=== PATIENT | female | born 1950 | race Caucasian/White ===

== ENCOUNTER 2017-02-21 07:51 | Day surgery (SDC) | payer MEDICARE ==
[~2017-02-21] VITALS: Ht 160 cm; Wt 124.5 kg
[2017-02-21] MEDS ORDERED: FUROSEMIDE40 MG PO (08:28)
[2017-02-21] MEDS ORDERED: ZOCOR40 MG PO (08:28)
[2017-02-21] MEDS ORDERED: TRAZODONE HCL50 MG PO (08:28)
[2017-02-21] MEDS ORDERED: COUMADIN5 MG PO (08:29)
[2017-02-21] MEDS ORDERED: K-DUR20 MEQ PO (08:29)
[2017-02-21] MEDS ORDERED: LEVOTHYROXINE150 MCG PO (08:29)
[2017-02-21] MEDS ORDERED: DETROL LA4 MG PO (08:29)
[2017-02-21] MEDS ORDERED: LOVENOX150 MG/ML SC (08:30)
[2017-02-21] MEDS ORDERED: PROZAC20 MG PO (08:32)
[2017-02-21] MEDS ORDERED: GLUCOPHAGE500 MG PO (08:33)
[2017-02-21] MEDS ORDERED: GLUCOTROL 5 MG T5 MG PO (08:33)
[2017-02-21] MEDS ORDERED: KENALOG 0.1 % O15 GM TOPICAL (08:33)
[2017-02-21] MEDS ORDERED: MELOXICAM TAB 15M (08:34)
[2017-02-21] MEDS ORDERED: HYDROXYZINE HCL50 MG PO (08:35)
[2017-02-21 08:42] VITALS: BP 150/63; Ht 160 cm; Wt 124.5 kg
[2017-02-21 09:31] LABS: ANION GAP 9.3 mmol/L (8-16); CALCIUM 8.6 mg/dL (8.5-10.1); CARBON DIOXIDE 33.1 mmol/L (21.0-32.0)
[2017-02-21 09:32] LABS: HEMATOCRIT 39.1 % (36.0-48.0); HEMOGLOBIN 13.1 g/dL (12-16); MCH 29.4 pg (26.0-34.0); MCHC 33.5 g/dL (31.0-37.0); MCV 87.7 fL (80.0-100.0); MEAN PLATELET VOLUME 10.1 fL (7.4-10.4); PLATELET COUNT 81 10x3/uL (130-400); RBC 4.46 10x6/uL (4.00-5.40); RDW 17.3 % (11.5-14.5); WBC 3.8 10x3/uL (4.8-10.8)
[2017-02-21 09:33] LABS: POTASSIUM - SERUM 2.4 mmol/L (3.5-5.1)
[2017-02-21 09:58] LABS: PLATELET ESTIMATE DECREASED
--- NOTE | 2017-02-21 16:30 | NUR ---
SITTING IN CHAIR IN ROOM, EATING FULL LIQUID TRAY, DENIES COMPLAINTS
--- NOTE | 2017-02-21 16:45 | NUR ---
DISCHARGE INSTRUCTIONS REVIEWED WITH PATIENT. DISCHARGED HOME VIA WHEELCHAIR WITH FAMILY MEMBER
--- NOTE | 2017-02-22 10:50 | OP ---
PATIENT NAME: ADITYA YDAAV MEDICAL RECORD: [id number] :46 LOCATION:[facility] ADMISSION DATE: SURGEON: PALMER MENCHACA DO DATE OF OPERATION: 02/21/2017 PROCEDURE: Colonoscopy with snare polypectomy. SCOPE: Olympus video pediatric colonoscope. MEDICATIONS: Propofol 350 mg IV per anesthesia. INDICATIONS: Screening colonoscopy. FINDINGS: Informed consent was given. The patient was made comfortable with the above medication. After reaching an adequate level of sedation by slow IV push, the patient was placed on her left side. A digital rectal examination was performed and was within normal limits. Scope was then advanced under direct visualization through the rectum and inserted to the level of the terminal ileum. The scope was withdrawn slowly and the mucosa was carefully examined. There were 2 benign appearing sessile polyps in the ascending colon, both measuring approximately 4 mm in size. They were both removed with hot snare polypectomy and retrieved. The remainder of the examination was normal without evidence of other polyps or other abnormalities. Retroflexion was performed in the rectum and appearances were normal. The scope was withdrawn from the patient. The patient tolerated the procedure well and there were no complications. ESTIMATED BLOOD LOSS: Less than 3 cc. WITHDRAWAL TIME: 13 minutes. IMPRESSION: Two ascending colon, benign, sessile polyps removed with hot snare polypectomy. RECOMMENDATIONS: 1. Discharge home when recovery parameters are met. 2. Continue current diet. 3. Continue current medications. 4. Recall colonoscopy will be dependent on results of biopsy specimens. At this time, I anticipate that the recall will be in 5 years. TRANSINT:[id number] Voice Confirmation ID: [id number] DOCUMENT ID: [id number] PALMER MENCHACA DO at 1050 CC: [id number] DICTATION DATE: 02/21/17 1535 SIGNAL INSPECTOR: 02/22/17 0048 [facility] 02/21/17 [place] [id number] [place] [id number]
== END 2017-02-21 16:45 | disposition home or self-care (01) ==
LOC: D.OPS 07:51
PROVIDERS: Anesthesiology
DX: Z12.11 Encounter for screening for malignant neoplasm of colon (principal); G47.30 Sleep apnea, unspecified; E11.9 Type 2 diabetes mellitus without complications; E66.01 Morbid (severe) obesity due to excess calories; Z68.42 Body mass index [BMI] 45.0-49.9, adult